=== PATIENT | female | born 1945 | race Hispanic/Latino ===

== ENCOUNTER → 2017-08-11 | Outpatient (CLI) | payer OTHER ==
[~2017-08-11] MED LIST: ATOR20TA65 PO; LISI1TAB13 PO; PANT40TA25 PO
== END | disposition home or self-care (01) ==
LOC: RAH 13:38
PROVIDERS: ATTEND Internal Medicine
DX: Z12.31 Encounter for screening mammogram for malignant neoplasm of breast (principal)
CPT/HCPCS: 77067

== ENCOUNTER → 2018-09-21 | Outpatient (CLI) | payer OTHER | END | disposition home or self-care (01) | LOC: RAH 08:56 | PROVIDERS: ATTEND Orthopaedic Surgery | DX: S83.282A Other tear of lateral meniscus, current injury, left knee, initial encounter (principal); S83.242A Other tear of medial meniscus, current injury, left knee, initial encounter; M93.862 Other specified osteochondropathies, left lower leg; X58.XXXA Exposure to other specified factors, initial encounter; Y93.89 Activity, other specified; Y92.89 Other specified places as the place of occurrence of the external cause; Y99.8 Other external cause status | CPT/HCPCS: 73721 ==

== ENCOUNTER 2018-11-04 06:55 | Day surgery (SDC) | payer OTHER, MEDICARE ==
[2018-11-03 16:12] VITALS: BP 126/74
[2018-11-04] VITALS (14 sets, daily range): BP systolic 90–128; BP diastolic 47–77
[~2018-11-04] VITALS: Ht 157.5 cm; Wt 75.5 kg
[~2018-11-04 06:55] MED LIST changes: +LEVO50TA11 PO; -LISI1TAB13 PO; +LISI1TAB29 PO
[2018-11-04] MEDS ORDERED: LACTATED RINGERS 1000ML 1,000 ML IV ONE (08:20)
[2018-11-04] MEDS: CEFAZOLIN SODIUM 1 GM VIAL ONE ×2 (08:36→08:50)
[2018-11-04] MEDS ORDERED: LIDOCAINE PF 2% 5ML ABBOJECT ONE (08:40)
[2018-11-04] MEDS ORDERED: MIDAZOLAM HCL 1 MG/ML 2ML VIAL ONE (08:41)
[2018-11-04] MEDS ORDERED: PROPOFOL 10 MG/ML 20ML VIAL IV ONE (08:41)
[2018-11-04] MEDS ORDERED: FENTANYL CITRATE PF 50 MCG/1 ML 2ML VIAL ONE ×2 (08:41→10:24)
[2018-11-04] MEDS ORDERED: EPHEDRINE SULFATE 50 MG/ML AMPULE ONE (10:17)
[2018-11-04] MEDS ORDERED: KETOROLAC TROMETHAMINE 30MG/ML ONE (10:44)
[2018-11-04] MEDS ORDERED: ONDANSETRON HCL 4 MG/2 ML VIAL ONE ×2 (10:44→11:14)
[2018-11-04] MEDS ORDERED: NAPR-1192 PO (10:57)
[2018-11-04] MEDS ORDERED: CEPH500B PO (10:57)
[2018-11-04] MEDS ORDERED: TYL3 PO (10:57)
[2018-11-04] MEDS ORDERED: MEPERIDINE-PF 25 MG/ML SYG ONE ×2 (11:03→11:20)
[2018-11-04] MEDS ORDERED: METOCLOPRAMIDE 10 MG/2 ML VIAL ONE (11:14)
== END 2018-11-04 13:00 | disposition home or self-care (01) ==
LOC: DAH 06:55
PROVIDERS: ATTEND Orthopaedic Surgery
DX: M23.242 Derangement of anterior horn of lateral meniscus due to old tear or injury, left knee (principal); M22.42 Chondromalacia patellae, left knee; E03.9 Hypothyroidism, unspecified; I10 Essential (primary) hypertension; Z79.899 Other long term (current) drug therapy; Z98.890 Other specified postprocedural states; Z90.710 Acquired absence of both cervix and uterus; Z90.49 Acquired absence of other specified parts of digestive tract; Z87.891 Personal history of nicotine dependence; Z82.49 Family history of ischemic heart disease and other diseases of the circulatory system; Z83.3 Family history of diabetes mellitus
CPT/HCPCS: 29881; 93005; A4606; A4649 ×2; A4930; A5120; A6223; J0690; J1885; J2001; J2175 ×2; J2250; J2405 ×2; J2704; J2765; J3010 ×2; J3490; J7120

== ENCOUNTER 2020-04-23 17:10 | Emergency (ER) | payer MEDICARE ==
[~2020-04-23 17:10] MED LIST changes: +CEPH500B PO; +NAPR-1192 PO; -PANT40TA25 PO; +PANT40TA54 PO; +TYL3 PO
[2020-04-23] MEDS ORDERED: KETOROLAC TROMETHAMINE 30MG/ML ONE (17:16)
[2020-04-23] MEDS ORDERED: ONDANSETRON HCL 4 MG/2 ML VIAL ONE (17:16)
[2020-04-23] MEDS ORDERED: MORPHINE SULFATE 4 MG/1ML SYG ONE ×2 (17:17→20:06)
[2020-04-23] MEDS ORDERED: BUPIVACAINE/PF 0.5% 30ML VIAL ONE (21:26)
[2020-04-23] MEDS ORDERED: DiphenhydrAMINE HCL 50 MG/ML VIAL ONE (22:36)
[2020-04-23] MEDS ORDERED: PROCHLORPERAZINE EDISYLATE 10 MG/2 ML VIAL ONE (22:36)
== END 2020-04-23 23:38 | disposition home or self-care (01) ==
LOC: EDH 17:10
DX: S52.532A Colles' fracture of left radius, initial encounter for closed fracture (principal); S52.612A Displaced fracture of left ulna styloid process, initial encounter for closed fracture; Z87.891 Personal history of nicotine dependence; I10 Essential (primary) hypertension; W01.0XXA Fall on same level from slipping, tripping and stumbling without subsequent striking against object, initial encounter; Y93.89 Activity, other specified; Y92.89 Other specified places as the place of occurrence of the external cause; Y99.8 Other external cause status
CPT/HCPCS: 25605; 73100; 73110; 96374; 96375; 96376; 99284; J0780; J1200; J1885; J2270 ×2; J2405; J3490

== ENCOUNTER 2024-07-09 13:44 | Emergency (ER) | payer OTHER, MEDICARE ==
[~2024-07-09] VITALS: Ht 157.5 cm; Wt 71.7 kg
[~2024-07-09 13:44] MED LIST changes: -LISI1TAB29 PO; +LISI1TAB53 PO
[2024-07-09 14:26] LABS: BASOPHILS # (AUTO) 0.05 K/uL (0.00-0.20); BASOPHILS % (AUTO) 0.8 % (0.0-5.0); EOSINOPHILS # (AUTO) 0.08 K/uL (0.00-0.70); EOSINOPHILS % (AUTO) 1.2 % (0.0-8.0); HEMATOCRIT 41.4 % (36-48); IMMATURE GRANULOCYTE ABSOLUTE 0.02 K/uL (0-1); LYMPHOCYTES # (AUTO) 2.4 K/uL (1.0-4.8); LYMPHOCYTES % (AUTO) 35.8 % (21.0-51.0); MEAN CORPUSCULAR HEMOGLOBIN 29.2 pg (27.0-33.0); MEAN CORPUSCULAR HGB CONC 32.6 g/dL (32.0-36.0); MEAN CORPUSCULAR VOLUME 89.6 fL (79-99); MONOCYTES # (AUTO) 0.4 K/uL (0.1-1.0); MONOCYTES % (AUTO) 5.6 % (3.0-13.0); NEUTROPHILS # (AUTO) 3.7 K/uL (1.8-7.7); NEUTROPHILS % (AUTO) 56.3 % (40.0-77.0); PLATELET COUNT (AUTO) 202 K/uL (130-400); RED BLOOD CELL COUNT(AUTO) 4.62 MIL/uL (4.00-5.50); RED CELL DISTRIBUTION WIDTH 14.4 % (11.0-15.5); WHITE BLOOD COUNT (AUTO) 6.6 K/uL (4.8-10.8)
[2024-07-09 14:41] LABS: CREATININE 0.8 mg/dL (0.5-1.0); MAGNESIUM 2.1 mg/dL (1.80-2.40); POTASSIUM 3.7 mmol/L (3.5-5.1)
[2024-07-09 14:44] LABS: B-TYPE NATRIURETIC PEPTIDE 61 pg/mL (0-100)
--- NOTE | 2024-07-09 14:47 | HMCIMG ---
CT HEAD/BRAIN W/O CONTRAST INDICATION: Persistent dizziness TECHNIQUE: CT HEAD/BRAIN W/O CONTRAST. CT was performed with one or more of the following dose reduction techniques: Automated exposure control, adjustment of the mA and/or kV according to the patient's size, or use of the iterative reconstruction technique. Comparison: None FINDINGS: Cerebral atrophy seen. Nonspecific periventricular and subcortical white matters changes are noted likely representing small vessel ischemic changes. No midline shift or herniation. No extra axial collection. No acute intracranial bleed. The visualized paranasal sinuses and mastoid air cells are normally aerated. IMPRESSION: Diffuse atrophy. No acute intracranial bleed is seen. Nonspecific white matter changes
--- NOTE | 2024-07-09 14:50 | EKG ---
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
--- NOTE | 2024-07-09 15:16 | HMCIMG ---
CHEST 1VW HISTORY: Chest pain COMPARISON: None FINDINGS: A frontal projection of the chest was obtained. No acute pulmonary infiltrates is seen. The heart is normal in size. Prominent interstitial markings are seen. Degenerative changes are seen. Aortic calcifications are seen. IMPRESSION: 1. No acute pulmonary infiltrate is seen.
[2024-07-09 15:33] LABS: APPEARANCE,URINE CLEAR (CLEAR); BILIRUBIN,URINE NEGATIVE (NEGATIVE); COLOR,URINE LIGHT-YELLOW (YELLOW); GLUCOSE, URINE (UA) NEGATIVE (NEGATIVE); KETONES,URINE NEGATIVE (NEGATIVE); LEUKOCYTE ESTERASE ,URINE 250 Leu/uL (NEGATIVE); NITRATE,URINE NEGATIVE (NEGATIVE); OCCULT BLOOD,URINE NEGATIVE (NEGATIVE); PROTEIN,URINE NEGATIVE (NEGATIVE); UROBILINOGEN,URINE 0.2 mg/dL (0.2-1.0)
[2024-07-09 15:34] LABS: ADD UA MICROSCOPIC YES
[2024-07-09 15:36] LABS: BACTERIA,URINE RARE /HPF (None Seen); HYALINE CASTS, URINE 0-1 /LPF (0-1 /LPF); MUCUS,URINE RARE LPF (None Seen); OTHER CASTS, URINE 3 /LPF (None Seen); SQUAMOUS EPITHELIAL CELL,UR FEW /HPF (0-2); UNCLASSIFIED CRYSTAL 1 /HPF (None Seen); YEAST,URINE BUDDING FEW /HPF (None Seen)
--- NOTE | 2024-07-09 16:47 | ERN ---
General Chief Complaint: Dizzy/Light Headed Stated Complaint: DIZZY/NAUSEA Time Seen by MD: 14:04 Time Seen by Midlevel: 14:04 Source: patient History of Present Illness Initial Comments The patient is an 79-year-old female with a past medical history of type 2 diabetes and hypertension presenting to the emergency department for evaluation of dizziness that has been ongoing for two days. No other symptoms reported. Patient denies any recent fall or direct injury to her head. Denies any vision changes. She does report a mild headache at this time. Allergies: Coded Allergies: No Known Drug Allergies (Verified Allergy, Unknown, 09/08/16) Home Meds Active Scripts Acetaminophen with Codeine (Tylenol with Codeine #3) 1 Tab Tab, 1 TAB PO Q6HPRN PRN for pain, #28 TAB Prov:NEISHA INMAN MD 11/04/18 Naproxen (Naproxen) 375 Mg Tablet, 375 MG PO BIDMEALS, #60 TAB Prov:NEISHA INMAN MD 11/04/18 Cephalexin Monohydrate (Keflex) 500 Mg Cap, 500 MG PO Q8H, #7 CAP Prov:NEISHA INMAN MD 11/04/18 Reported Medications Levothyroxine Sodium (Levothyroxine Sodium) 50 Mcg Tablet, 50 MCG PO DAILY, TAB 11/03/18 Atorvastatin Calcium (Atorvastatin Calcium) 20 Mg Tablet, 20 MG PO AM, TAB 09/10/16 Pantoprazole Sodium (Pantoprazole Sodium) 40 Mg Tablet.dr, 40 MG PO AM, TAB 09/10/16 Lisinopril/Hydrochlorothiazide (Lisinopril-Hctz 20-25 mg Tab) 1 Each Tablet, 1 EACH PO AM, TAB 09/10/16 Past Medical History Past Medical History: Diabetes-Type II, Hypertension Past Surgical History: Hysterectomy, Cholecystectomy Surgical History Other: LEFT CTR ROS Dictation CONSTITUTIONAL: Negative except for HPI HEAD/FACE: Negative except for HPI EENT: Negative except for HPI RESPIRATORY: Negative except for HPI GASTROINTESTINAL/ABDOMINAL: Negative except for HPI GENITOURINARY: Negative except for HPI MUSCULOSKELETAL: Negative except for HPI INTEGUMENTARY: Negative except for HPI NEUROLOGICAL/PSYCH: Negative except for HPI HEMATOLOGIC/LYMPHATIC: Negative except for HPI All Systems Negative, Except as noted above. 13 point review of systems assessed and all negative except for above. Physical Exam Physical Exam Dictation Vital Signs reviewed General Appearance: Alert, oriented x 3, no acute distress, well developed, nou rished. Head and Face: non-traumatic. Eyes: PERRL, pink conjunctivas, eyelid no trauma, anterior chamber with arcus senilis. Ears: Pinnas intact and no signs of trauma or erythema ear canals clear and no discharge TM no erythema Nose: No discharge, no bleeding. Oropharynx: Mouth normal, tongue pink, pharynx clear,no erythema, tonsils no exudates, no abscesses noted, mucous me mbrane moist Neck: Supple, non-tender, no thyromegaly, no masses, no JVD, no bruits Breast:Deferred Chest:No tenderness, no crepitus, no paradoxical movement, no retractions Lungs:Clear, well-ventilated, symmetric, no rales, no wheezing, no rhonchi, no stridor, good breath sounds bilaterally Heart: Regular rate, regular rhythm, no murmur, no gallops Vascular: no peripheral edema, Abdomen: Soft, positive bowel sounds, nondistended, no guarding, nontender, no rebound, no masses no hepatomegaly, no splenomegaly, no Wetzel's sign, no hernias. Rectal: Deferred Genital: Deferred Neurological: Normal speech, motor function intact, sensory function intact Musculoskeletal: Neck nontender, full range of motion, back nontender, full range of motion, Extremities: nontender, full range of motion Skin: Color pink, dry, no turgor, no rash, no lacerations, no abrasions, no contusions. Lymphatic: Deferred Results Laboratory and Microbiology Lab and Micro Result Laboratory Tests Test 07/09/24 14:14 07/09/24 15:12 White Blood Count 6.6 K/uL (4.8-10.8) Red Blood Count 4.62 MIL/uL (4.00-5.50) Hemoglobin 13.5 g/dL (12.0-16.0) Hematocrit 41.4 % (36-48) Mean Corpuscular Volume 89.6 fL (79-99) Mean Corpuscular Hemoglobin 29.2 pg (27.0-33.0) Mean Corpuscular Hemoglobin Concent 32.6 g/dL (32.0-36.0) Red Cell Distribution Width 14.4 % (11.0-15.5) Platelet Count 202 K/uL (130-400) Mean Platelet Volume 11.0 fL (7.5-10.5) H Immature Granulocyte % (Auto) 0.3 % (0-1) Neutrophils (%) (Auto) 56.3 % (40.0-77.0) Lymphocytes (%) (Auto) 35.8 % (21.0-51.0) Monocytes (%) (Auto) 5.6 % (3.0-13.0) Eosinophils (%) (Auto) 1.2 % (0.0-8.0) Basophils (%) (Auto) 0.8 % (0.0-5.0) Neutrophils # (Auto) 3.7 K/uL (1.8-7.7) Lymphocytes # (Auto) 2.4 K/uL (1.0-4.8) Monocytes # (Auto) 0.4 K/uL (0.1-1.0) Eosinophils # (Auto) 0.08 K/uL (0.00-0.70) Basophils # (Auto) 0.05 K/uL (0.00-0.20) Absolute Immature Granulocyte (auto 0.02 K/uL (0-1) Nucleated Red Blood Cells 0.0 % (0.0-0.19) Sodium Level 141 mmol/L (136-145) Potassium Level 3.7 mmol/L (3.5-5.1) Chloride Level 107 mmol/L (101-111) Carbon Dioxide Level 28 mmol/L (21-32) Blood Urea Nitrogen 13 mg/dL (7-18) Creatinine 0.8 mg/dL (0.5-1.0) Glomerular Filtration Rate Calc 74 mL/min (>90) Random Glucose 95 mg/dL (70-105) Total Calcium 9.7 mg/dL (8.5-10.1) Magnesium Level 2.10 mg/dL (1.80-2.40) Total Creatine Kinase 43 U/L (21-232) Troponin I High Sensitivity 8 ng/L (4-50) B-Type Natriuretic Peptide 61 pg/mL (0-100) Urine Color LIGHT-YELLOW (YELLOW) Urine Appearance CLEAR (CLEAR) Urine pH 6.0 (5.0-8.0) Urine Specific [place] 1.010 (1.001-1.031) Urine Protein NEGATIVE mg/dL (NEGATIVE) Urine Glucose (UA) NEGATIVE mg/dL (NEGATIVE) Urine Ketones NEGATIVE mg/dL (NEGATIVE) Urine Occult Blood NEGATIVE (NEGATIVE) Urine Nitrate NEGATIVE (NEGATIVE) Urine Bilirubin NEGATIVE mg/dL (NEGATIVE) Urine Urobilinogen 0.2 mg/dL (0.2-1.0) Urine Leukocyte Esterase 250 Mari/uL (NEGATIVE) H Urine RBC 2-5 /HPF (0-1) H Urine WBC 2-5 /HPF (0-1) H Urine Squamous Epithelial Cells FEW /HPF (0-2) Urine Other Crystals (Auto) 1 /HPF (None Seen) Urine Bacteria RARE /HPF (None Seen) Urine Hyaline Casts 0-1 /LPF (0-1 /LPF) Urine Other Casts 3 /LPF (None Seen) Urine Yeast FEW /HPF (None Seen) Labs Reviewed?: Yes MDM MDM: The patient is an 79-year-old female with a past medical history of type 2 diabetes and hypertension presenting to the emergency department for evaluation of dizziness that has been ongoing for two days. No other symptoms reported. Patient denies any recent fall or direct injury to her head. Denies any vision changes. She does report a mild headache at this time. Initial vital signs are stable. Her neurological examination is unremarkable. She was no focal neurological deficits. No facial droop. She was alert and oriented x4. There are no obvious signs of external trauma. However, given her persistent dizziness for the past two days I obtained a CT scan. Her CBC shows no leukocytosis, no anemia, no thrombocytopenia. Chemistries are unremarkable. Renal function is normal. Cardiac enzymes are negative. CT scan of the head reveals diffuse atrophy with no acute intracranial bleed. There are some nonspecific white matter changes. Urinalysis shows leuk esterase with few bacteria in the urine however clinically the patient has no symptoms. There are also squamous epithelium in the urine which indicates contaminated sample. We will hold off on treating this since I do not believe it is a urinary tract infection. On repeat examination the patient reports a mild headache along with continued dizziness. I discussed my plan to admit the patient for further observation and management however she was refusing to be admitted. The patient states she does not want to be admitted to the hospital and has an appointment scheduled with her primary care doctor in three days. Family at bedside states she will call her primary care doctor tomorrow to confirm the appointment. I encouraged her to stay but she is refusing. She will be discharged home with strict return precautions. Differential diagnosis: Vertigo, intracranial bleed, stroke Rationale: Tests considered and ordered secondary to shared decision making include: Previous outside records reviewed: Old ER visits. Risk of complication and/or morbidity or mortality of patient management: None Medications-Per medication reconciliation Need for hospitalization: Patient does meet criteria for hospitalization. Need for emergency major/minor surgery: No There are no social concerns with this patient. Prescription drug management Prescriptions will include symptomatic care Patient's prior external medical records from other ER visits were reviewed by me as indicated. Prior testing and results from previous visits were reviewed. Prior tests were taken into account with medical decision making and resource utilization, independent historian/historians were used to obtain complete medical history. I independently interpreted the test that were performed, results were reviewed by me and considered findings on radiology if ordered. Medical management and examination interpretation discussions were had by me with other qualified healthcare professionals as indicated for the patient's care. ED Course Orders Procedure Category Date Status Time 12 Lead Ekg Tracing- EKG 07/09/24 Complete Technical 14:10 B-Type Natriuretic LAB 07/09/24 Complete Peptide 14:10 Cbc With Differential LAB 07/09/24 Complete 14:10 Basic Metabolic Panel LAB 07/09/24 Complete 14:10 Creatine Kinase, Total LAB 07/09/24 Complete 14:10 Magnesium LAB 07/09/24 Complete 14:10 Urinalysis Profile LAB 07/09/24 Complete 14:10 Troponin I High LAB 07/09/24 Complete Sensitivity 14:10 Ct Head/Brain W/O CT 07/09/24 Resulted Contrast 14:10 Chest 1vw RAD 07/09/24 Resulted 14:10 Culture Urine SHALINI 07/09/24 In Process 15:34 Vital Signs Date Time Temp Pulse Resp B/P (MAP) Pulse Ox O2 Delivery O2 Flow Rate FiO2 07/09/24 14:03 97.7 60 19 189/76 98 Room Air* 0 21 07/09/24 13:46 96.8 72 18 185/91 96 0 [facility] [address] [address] IMAGING REPORT Signed PATIENT: ATA SOTELO MR#: [id number] : 1945 SEX: F AGE: 79 LOCATION: [facility] ORDER 10 STATUS: REG REPORT#: [id number] SERVICE 09 REASON: persistant dizziness ORDERING PHYSICIAN: CARMEN ADKINS PROCEDURE: HEAD WO - CT HEAD/BRAIN W/O CONTRAST CT HEAD/BRAIN W/O CONTRAST INDICATION: Persistent dizziness TECHNIQUE: CT HEAD/BRAIN W/O CONTRAST. CT was performed with one or more of the following dose reduction techniques: Automated exposure control, adjustment of the mA and/or kV according to the patient's size, or use of the iterative reconstruction technique. Comparison: None FINDINGS: Cerebral atrophy seen. Nonspecific periventricular and subcortical white matters changes are noted likely representing small vessel ischemic changes. No midline shift or herniation. No extra axial collection. No acute intracranial bleed. The visualized paranasal sinuses and mastoid air cells are normally aerated. IMPRESSION: Diffuse atrophy. No acute intracranial bleed is seen. Nonspecific white matter changes DICTATED BY: MAE BOWENS MD DATE: 07/09/241443 ELECTRONICALLY SIGNED BY: MAE BOWENS MD DATE: 07/09/241446 DX & DISP Disposition: Discharge Departure Impression: Primary Impression: Dizziness Condition: Stable Additional Instructions: Your blood work today is unremarkable. You are not anemic. Your kidney function is normal. Your electrolytes are normal. Your cardiac enzymes are negative. Your CT scan and chest x-ray are normal. Referrals: KIM PELAEZ MD (PCP) Time of Disposition: 16:45 I have reviewed the case, and I agree with, Diagnosis and Plan I performed the substantive portion of the visit. I have reviewed and personally made and approve the management plan that is documented in the note by myself or the LA NENA. I acknowledge for responsibility for the patient's management plan. CARMEN ADKINS Jul 09, 2024 16:47
[2024-07-09] MEDS: HYDROcodone/APAP 5/325 1 TAB TABLET PO ONE (17:10)
[2024-07-09 17:16] VITALS: BP 145/68; PULSE 74; RESP 20; TEMP 98.8; O2SAT 98
[2024-07-09] MEDS ORDERED: FAMO10TA39 PO (23:49)
== END 2024-07-09 17:19 | disposition home or self-care (01) ==
LOC: EDH 13:44
DX: R42 Dizziness and giddiness (principal); R51.9 Headache, unspecified; E11.9 Type 2 diabetes mellitus without complications; I10 Essential (primary) hypertension; Z79.899 Other long term (current) drug therapy; Z79.890 Hormone replacement therapy; Z90.49 Acquired absence of other specified parts of digestive tract; Z90.710 Acquired absence of both cervix and uterus
CPT/HCPCS: 99284; 99285; 82550; 83735; 84484 ×2; 80048 ×2; 83880; 83690; 85025 ×2; 87086; 81001; 36415 ×2; 71045; 70450; 96360; 96361; 93005 ×2; J7120

== ENCOUNTER 2024-07-09 19:46 | Emergency (ER) | payer OTHER, MEDICARE ==
[~2024-07-09] VITALS: Ht 154.9 cm; Wt 65.8 kg
--- NOTE | 2024-07-09 19:50 | NUR ---
UA CUP PROVIDED
[2024-07-09 20:08] LABS: BASOPHILS # (AUTO) 0.04 K/uL (0.00-0.20); BASOPHILS % (AUTO) 0.6 % (0.0-5.0); EOSINOPHILS # (AUTO) 0.08 K/uL (0.00-0.70); EOSINOPHILS % (AUTO) 1.1 % (0.0-8.0); HEMATOCRIT 38.9 % (36-48); IMMATURE GRANULOCYTE ABSOLUTE 0.02 K/uL (0-1); LYMPHOCYTES # (AUTO) 3.1 K/uL (1.0-4.8); LYMPHOCYTES % (AUTO) 42.8 % (21.0-51.0); MEAN CORPUSCULAR HEMOGLOBIN 28.8 pg (27.0-33.0); MEAN CORPUSCULAR HGB CONC 32.1 g/dL (32.0-36.0); MEAN CORPUSCULAR VOLUME 89.6 fL (79-99); MONOCYTES # (AUTO) 0.3 K/uL (0.1-1.0); MONOCYTES % (AUTO) 3.6 % (3.0-13.0); NEUTROPHILS # (AUTO) 3.7 K/uL (1.8-7.7); NEUTROPHILS % (AUTO) 51.6 % (40.0-77.0); PLATELET COUNT (AUTO) 196 K/uL (130-400); RED BLOOD CELL COUNT(AUTO) 4.34 MIL/uL (4.00-5.50); RED CELL DISTRIBUTION WIDTH 14.4 % (11.0-15.5); WHITE BLOOD COUNT (AUTO) 7.2 K/uL (4.8-10.8)
[2024-07-09 20:18] LABS: CREATININE 1.2 mg/dL (0.5-1.0); POTASSIUM 3.3 mmol/L (3.5-5.1)
--- NOTE | 2024-07-09 20:39 | ERN ---
General Chief Complaint: Abdominal Pain Stated Complaint: ABD PAIN Time Seen by MD: 19:58 Source: patient History of Present Illness Initial Comments Patient is an 79-year-old female seen here in the emergency room earlier today for dizziness and lightheadedness. The workup included a head CT scan which was negative except for age-related changes. CBC was normal chemistry panel had a potassium of 3.3. Patient went home and had some dinner and comes back to the emergency room with a excruciating diffuse abdominal pain. Allergies: Coded Allergies: No Known Drug Allergies (Verified Allergy, Unknown, 09/08/16) Home Meds Active Scripts Acetaminophen with Codeine (Tylenol with Codeine #3) 1 Tab Tab, 1 TAB PO Q6HPRN PRN for pain, #28 TAB Prov:NEISHA INMAN MD 11/04/18 Naproxen (Naproxen) 375 Mg Tablet, 375 MG PO BIDMEALS, #60 TAB Prov:NEISHA INMAN MD 11/04/18 Cephalexin Monohydrate (Keflex) 500 Mg Cap, 500 MG PO Q8H, #7 CAP Prov:NEISHA INMAN MD 11/04/18 Reported Medications Levothyroxine Sodium (Levothyroxine Sodium) 50 Mcg Tablet, 50 MCG PO DAILY, TAB 11/03/18 Atorvastatin Calcium (Atorvastatin Calcium) 20 Mg Tablet, 20 MG PO AM, TAB 09/10/16 Pantoprazole Sodium (Pantoprazole Sodium) 40 Mg Tablet.dr, 40 MG PO AM, TAB 09/10/16 Lisinopril/Hydrochlorothiazide (Lisinopril-Hctz 20-25 mg Tab) 1 Each Tablet, 1 EACH PO AM, TAB 09/10/16 Past Medical History Past Medical History: Diabetes-Type II, Hypertension Past Surgical History: Hysterectomy, Cholecystectomy Surgical History Other: LEFT CTR Constitutional: (-) chills, (-) diaphoresis, (-) fever, (-) malaise, (-) weakness, (-) other documentation EENTM: (-) eye pain, (-) blurred vision, (-) tearing, (-) double vision, (-) ear pain, (-) ear discharge, (-) nose pain, (-) nose congestion, (-) throat pain, (-) Throat swelling, (-) mouth pain, (-) tooth pain, (-) mouth swelling, (-) other documentation Respiratory: (-) cough, (-) orthopnea, (-) short of breath, (-) stridor, (-) wheezing, (-) other documentation Cardiovascular: (-) chest pain, (-) edema, (-) palpitations, (-) syncope, (-) dyspnea on exertion, (-) other documentation Gastrointestinal/Abdominal: (-) nausea, (-) vomiting, (-) diarrhea, (-) abdominal pain, (-) abdominal distention, (-) constipation, (-) rectal bleeding, (-) dark stool/melena, (-) other documentation Genitourinary: (-) vaginal discharge, (-) vaginal bleeding, (-) dysuria, (-) frequency, (-) hematuria, (-) pain, (-) other documentation Musculoskeletal: (-) Neck pain, (-) back pain, (-) Flank Pain, (-) joint pain, (-) joint swelling, (-) muscle pain, (-) muscle stiffness, (-) gout, (-) other documentation Skin: (-) laceration, (-) contusion, (-) abrasion, (-) abscess, (-) rash, (-) change in color, (-) change in hair, (-) change in nails, (-) diaphoresis, (-) dryness, (-) other documentation Neuro: (-) altered mental status, (-) headache, (-) syncope, (-) paralysis, (-) numbness, (-) seizure, (-) pre-existing deficit, (-) tremors, (-) weakness, (-) dizziness, (-) slurred speech, (-) vertigo, (-) other documentation Physical Exam Head/Face Trauma: No Eye: bilateral eye normal inspection, bilateral eye PERRL, bilateral eye EOMI Ear, Nose, Throat: (+) hearing grossly normal, (+) normal ENT inspection, (+) moist mucous membraine Neck: (+) normal inspection, (+) supple, (+) full range of motion Respiratory: (+) chest non-tender, (+) lungs clear Heart: (+) regular, (+) tachycardia Vascular: (+) no edema Gastrointestinal: (+) soft, (+) distended Gastrointestinal Comment Diffuse tenderness Results Laboratory and Microbiology Lab and Micro Result Laboratory Tests Test 07/09/24 20:00 White Blood Count 7.2 K/uL (4.8-10.8) Red Blood Count 4.34 MIL/uL (4.00-5.50) Hemoglobin 12.5 g/dL (12.0-16.0) Hematocrit 38.9 % (36-48) Mean Corpuscular Volume 89.6 fL (79-99) Mean Corpuscular Hemoglobin 28.8 pg (27.0-33.0) Mean Corpuscular Hemoglobin Concent 32.1 g/dL (32.0-36.0) Red Cell Distribution Width 14.4 % (11.0-15.5) Platelet Count 196 K/uL (130-400) Mean Platelet Volume 11.3 fL (7.5-10.5) H Immature Granulocyte % (Auto) 0.3 % (0-1) Neutrophils (%) (Auto) 51.6 % (40.0-77.0) Lymphocytes (%) (Auto) 42.8 % (21.0-51.0) Monocytes (%) (Auto) 3.6 % (3.0-13.0) Eosinophils (%) (Auto) 1.1 % (0.0-8.0) Basophils (%) (Auto) 0.6 % (0.0-5.0) Neutrophils # (Auto) 3.7 K/uL (1.8-7.7) Lymphocytes # (Auto) 3.1 K/uL (1.0-4.8) Monocytes # (Auto) 0.3 K/uL (0.1-1.0) Eosinophils # (Auto) 0.08 K/uL (0.00-0.70) Basophils # (Auto) 0.04 K/uL (0.00-0.20) Absolute Immature Granulocyte (auto 0.02 K/uL (0-1) Nucleated Red Blood Cells 0.0 % (0.0-0.19) Sodium Level 141 mmol/L (136-145) Potassium Level 3.3 mmol/L (3.5-5.1) L Chloride Level 105 mmol/L (101-111) Carbon Dioxide Level 27 mmol/L (21-32) Blood Urea Nitrogen 15 mg/dL (7-18) Creatinine 1.2 mg/dL (0.5-1.0) H Glomerular Filtration Rate Calc 46 mL/min (>90) Random Glucose 198 mg/dL (70-105) #H Total Calcium 9.4 mg/dL (8.5-10.1) Troponin I High Sensitivity 5 ng/L (4-50) Lipase 44 U/L (16-77) MDM Patient's sudden onset of pain could be due to peptic ulcer disease bowel obstruction GERD. Patient's symptoms have improved dramatically with a L of fluid and the GI cocktail. Her creatinine gini from 0.8-1.2 between today's earlier admission and tonight suggesting dehydration. Which can cause diffuse abdominal pain. I would like to give the patient a 2 L of fluid before I discharge her from the emergency room. She needs to follow up with her primary care physician regarding her increase in her creatinine and also to discuss starting ED Course Orders Procedure Category Date Status Time Vital Signs Per CPOE 07/09/24 Transmitted Routine 19:49 Saline Lock Iv CPOE 07/09/24 Transmitted 19:49 Cbc With Differential LAB 07/09/24 Complete 19:49 Lipase LAB 07/09/24 Complete 19:49 Urinalysis Profile LAB 07/09/24 Logged 19:49 12 Lead Ekg Tracing- EKG 07/09/24 Logged Technical 19:49 Troponin I High LAB 07/09/24 Complete Sensitivity 19:49 Basic Metabolic Panel LAB 07/09/24 Complete 19:49 Lactated Ringers PHA 07/09/24 Complete 1000ml (Lactated 22:40 Lidocaine Hcl 2% PHA 07/09/24 Complete Viscous (Lidocaine Hcl 23:00 Mag/Alum/Simeth 30ml PHA 07/09/24 Complete (Maalox Plus 30ml) 23:00 Dicyclomine Hcl PHA 07/09/24 Complete (Bentyl 10mg/5ml 23:00 Current Medications Medications (Trade) Dose Ordered Sig/Los Route PRN Reason Start Time Stop Time Status Last Admin Dose Admin Al Hydroxide/Mg Hydroxide (MAALox PLUS 30ML) 30 ml ONCE ONCE PO 07/09/24 23:00 07/09/24 23:01 DC 07/09/24 22:50 Dicyclomine HCl (Bentyl 10mg/5ml Syrup) 10 mg ONCE ONCE PO 07/09/24 23:00 07/09/24 23:01 DC 07/09/24 22:50 Lactated Ringer's (Lactated Ringers 1000ml) 1,000 ml BOLUS STAT IV 07/09/24 22:40 07/09/24 22:43 DC 07/09/24 22:50 Lidocaine HCl (Lidocaine HCl 2% Viscous) 10 ml ONCE ONCE PO 07/09/24 23:00 07/09/24 23:01 DC 07/09/24 22:50 Vital Signs Date Time Temp Pulse Resp B/P (MAP) Pulse Ox O2 Delivery O2 Flow Rate FiO2 07/09/24 21:02 98.2 90 16 160/85 98 Room Air* 0 21 07/09/24 19:48 98.4 92 20 161/87 99 Room Air DX & DISP Disposition: Discharge Departure Impression: Primary Impression: Dehydration Additional Impression: GERD (gastroesophageal reflux disease) Condition: Stable Referrals: KIM PELAEZ MD (PCP) CARMEN ADAMS MD Jul 09, 2024 20:39
[2024-07-09] MEDS: MAG/ALUM/SIMETH 30 ML UDCUP PO ONE (22:50)
[2024-07-09] MEDS: LACTATED RINGERS 1000ML IV STA (22:50)
[2024-07-09] MEDS: DICYCLOMINE HCL 10 MG/5 ML ML PO ONE (22:50)
[2024-07-09] MEDS: LIDOCAINE HCL 2% VISCOUS 15 ML UDCUP PO ONE (22:50)
--- NOTE | 2024-07-09 23:28 | NUR ---
ASSUMED PT CARE AT THIS TIME
[2024-07-09] MEDS ORDERED: FAMO10TA39 PO ×2 (23:49)
[2024-07-10 00:28] VITALS: BP 130/86; PULSE 86; RESP 16; TEMP 98.3; O2SAT 99
[2024-07-10] MEDS: LACTATED RINGERS 1000ML IV STA (00:29)
--- NOTE | 2024-07-10 12:00 | EKG ---
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
== END 2024-07-10 00:30 | disposition home or self-care (01) ==
LOC: EDH 19:46
DX: E86.0 Dehydration (principal); K21.9 Gastro-esophageal reflux disease without esophagitis; E11.9 Type 2 diabetes mellitus without complications; I10 Essential (primary) hypertension; Z79.899 Other long term (current) drug therapy; Z79.890 Hormone replacement therapy; Z90.49 Acquired absence of other specified parts of digestive tract; Z90.710 Acquired absence of both cervix and uterus
CPT/HCPCS: 99284; 96360; 96361; 84484; 80048; 83690; 85025; 36415; 93005; J7120